=== PATIENT | female | born 1990 | race Two or more races ===

== ENCOUNTER 2016-05-29 13:15 | Emergency (ER) | payer BC, OTHER ==
[2016-05-29 13:25] VITALS: BP 120/63; PULSE 106; TEMP 98.4; BMI 22.8
[2016-05-29] MEDS ORDERED: ACETAMINOPHEN 500 MG TABLET (FP) PO ONE (14:11)
[2016-05-29] MEDS ORDERED: ACETAMINOPHEN 325 MG TABLET (FP) ONE (14:21)
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
== END 2016-05-29 16:05 | disposition home or self-care (01) ==
LOC: JERFT 13:15
DX: S93.411A Sprain of calcaneofibular ligament of right ankle, initial encounter (principal); S80.12XA Contusion of left lower leg, initial encounter; V03.10XA Pedestrian on foot injured in collision with car, pick-up truck or van in traffic accident, initial encounter; Y92.414 Local residential or business street as the place of occurrence of the external cause; Y93.89 Activity, other specified; Z3A.01 Less than 8 weeks gestation of pregnancy
CPT/HCPCS: 73590-TC-LT; 73610-TC-RT; 99281-25

== ENCOUNTER 2019-04-19 09:48 | Day surgery (SDC) | payer OTHER ==
[2019-04-15 12:34] VITALS: BMI 26.6
[2019-04-19] MEDS ORDERED: ceFAZolin SODIUM 1 GM VIAL ONE (10:57)
[2019-04-19] MEDS ORDERED: LIDOCAINE HCL/PF 2% SDV 5ML VIAL ONE (10:57)
[2019-04-19] MEDS ORDERED: ONDANSETRON 4 MG/2 ML VIAL ONE (10:57)
[2019-04-19] MEDS ORDERED: DEXAMETHASONE SOD PHOSPHATE 4 MG/1 ML VIAL ONE (10:57)
[2019-04-19] MEDS ORDERED: KETOROLAC TROMETHAMINE 30 MG/1 ML VIAL ONE ×2 (10:57→12:05)
[2019-04-19] MEDS ORDERED: SODIUM CHLORIDE 0.9% P/F 10 ML VIAL IJ ONE (10:57)
[2019-04-19] MEDS ORDERED: BUPIVACAINE HCL/PF 0.5% (5MG/ML) 10 ML VIAL ONE (11:02)
[2019-04-19] MEDS ORDERED: MORPHINE SULFATE 10 MG/1 ML *VIAL ONE (11:03)
[2019-04-19] MEDS ORDERED: MIDAZOLAM HCL 2 MG/2 ML SINGLE DOSE VIAL ONE (11:27)
[2019-04-19] MEDS ORDERED: BUPIVACAINE HCL/PF 0.5% (5MG/ML) 10 ML VIAL IJ ONE (12:00)
[2019-04-19] MEDS ORDERED: ONDANSETRON 4 MG/2 ML VIAL IVPUSH PRN (12:26)
[2019-04-19] MEDS ORDERED: oxyCODONE HCL 5 MG TABLET PO PRN (12:26)
[2019-04-19] MEDS ORDERED: ACETAMINOPHEN 1000 MG/100 ML VIAL (NON FORMULARY) IVPB ONE (12:27)
[2019-04-19] MEDS ORDERED: LACTATED RINGERS SOLUTION 1,000 ML IV SCH (12:30)
[2019-04-19] MEDS ORDERED: ACETAMINOPHEN INJECTION 100 ML IVPB ONE (12:32)
--- NOTE | 2019-04-19 12:38 | OP ---
DATE OF OPERATION: 04/19/2019 PREOPERATIVE DIAGNOSIS: Torn medial meniscus, left knee. POSTOPERATIVE DIAGNOSIS: 1. Torn medial and lateral meniscus, left knee 2. Articular cartilage damage to the patella 3. Hypertrophic synovium 4. Extensive joint debris. PROCEDURE PERFORMED: 1. Operative arthroscopy of the left knee with partial medial and lateral meniscectomy 2. Chondroplasty with chondral shaving 3. Extensive synovectomy 4. Extensive joint debridement. SURGEON: Lucrecia Perez MD [place] FARMER: GAIL Cárdenas ANESTHESIA: Debbie Cervantes MD, General Anesthesia. DESCRIPTION OF PROCEDURE: The procedure consisted of the patient being brought into the operating room and gently transferred from the stretcher to the OR table with all bony prominences well padded. The left leg was prepared and draped in a sterile fashion. Patient was given intravenous antibiotics and copious irrigation throughout the procedure to minimize risk of infection. Complete risks, benefits, and alternatives discussion were conducted with the patient which was inclusive of but not limited to infection, bleeding, , paralysis, increased pain, need for repeat surgery. Patient asked questions, understood the procedure, and decided to proceed with surgical treatment. Following sterile preparation and draping of the left leg, leg was exsanguinated using a rubber Esmarch bandage and tourniquet inflated to 325 mmHg. Suprapatellar, medial, and lateral joint line portals were used to introduce the arthroscope and arthroscopic instruments. Prior to initiation of the procedure, an appropriate timeout was conducted which was inclusive of but not limited to type of surgery , site of surgery, anesthesiologist, and surgeon. The suprapatellar pouch was evaluated. There was noted to be hypertrophic synovium and extensive partial synovectomy was performed. The anterior surface of the patella damage consistent with chondromalacia changes and chondral shaving was performed using shaver and radiofrequency wand. Medial and lateral gutters were without plaque or loose body. Medial meniscus was found to have tear of the posterior horn and this was resected using shaver and radiofrequency wand. Intercondylar regions were noted to have joint debris, and extensive joint debridement was performed. Anterior cruciate ligament and posterior cruciate ligaments were found to be intact. Lateral meniscus was found to have a tear of the posterior horn and was resected using shaver and radiofrequency wand. The joint was then copiously irrigated with sterile saline irrigant. The wounds were closed with 4-0 undyed Vicryl followed by Steri- Strips, Xeroform, 4 x 4's, Combine, sterile Webril, Estevan bandage, and knee immobilizer. The tourniquet was deflated after approximately 20 minutes of tourniquet time. There were no intraoperative complications. Anthony Yen was critical for assisting during surgery, holding the arthroscope while I used the arthroscopic shaver and radio frequency wand. He provided critical support and safety in surgical treatment. LUCRECIA PEREZ M.D. [id number] MTDD
[2019-04-19 14:03] VITALS: TEMP 97.8
[2019-04-19] MEDS ORDERED: PROMETHAZINE HCL 25 MG/1 ML VIAL ONE (16:26)
[2019-04-19] MEDS ORDERED: PROMETHAZINE HCL 25 MG/1 ML VIAL IVPUSH ONE (16:34)
[2019-04-19 18:17] VITALS: BP 109/64; PULSE 68
== END 2019-04-19 18:15 | disposition home or self-care (01) ==
LOC: FASU 09:48
PROVIDERS: ATTEND Orthopaedic Surgery
PROC: 0SBD4ZZ Excision of Left Knee Joint, Percutaneous Endoscopic Approach (ICD-10-PCS; 2019-04-19)
PROC: 0SBD4ZZ Excision of Left Knee Joint, Percutaneous Endoscopic Approach (ICD-10-PCS; 2019-04-19)
PROC: 0SQD4ZZ Repair Left Knee Joint, Percutaneous Endoscopic Approach (ICD-10-PCS; 2019-04-19)
PROC: 0SBD4ZZ Excision of Left Knee Joint, Percutaneous Endoscopic Approach (ICD-10-PCS; principal; 2019-04-19 11:57)
DX: S83.242A Other tear of medial meniscus, current injury, left knee, initial encounter (principal); S83.282A Other tear of lateral meniscus, current injury, left knee, initial encounter; M67.262 Synovial hypertrophy, not elsewhere classified, left lower leg; M25.862 Other specified joint disorders, left knee; M24.10 Other articular cartilage disorders, unspecified site; X58.XXXA Exposure to other specified factors, initial encounter; Y93.9 Activity, unspecified; Y92.9 Unspecified place or not applicable
CPT/HCPCS: 29876; 29880; G0289; 84703; 94760; J0131